=== PATIENT | male | born 1960 ===

== ENCOUNTER → 2020-06-02 | Outpatient (CLI) | payer BC ==
--- NOTE | 2020-06-02 15:42 | KCIC ---
Examination: CT chest without contrast HISTORY: History of cough, history of smoking COMPARISON: None available TECHNIQUE: Axial CT images of chest were performed with IV contrast. Coronal and sagittal reformats are performed. Exposure: One or more of the following individualized dose reduction techniques were utilized for this examination: 1. Automated exposure control 2. Adjustment of the mA and/or kV according to patient size 3. Use of iterative reconstruction technique FINDINGS: The visualized thyroid gland grossly appears unremarkable. Central airways are patent. The heart size grossly appears unremarkable. Coronary artery calcifications identified. The lungs are clear. The visualized noncontrasted liver, spleen, adrenals grossly appears unremarkable Mild fat stranding identified in the soft tissue of the chest wall, nonspecific. Mild degenerative changes thoracic spine. IMPRESSION: 1. Lungs are clear. Electronically signed by: Chicho Collins MD (06/02/2020 3:40 PM) [id number]
== END ==
LOC: KCIC CT 15:03
PROVIDERS: ATTEND Family Medicine
DX: I25.10 Atherosclerotic heart disease of native coronary artery without angina pectoris (principal); M47.814 Spondylosis without myelopathy or radiculopathy, thoracic region; Z87.891 Personal history of nicotine dependence
CPT/HCPCS: 71250